=== PATIENT | male | born 1945 | race Caucasian/White ===

== ENCOUNTER 2016-05-14 07:13 | Observation (INO) | payer OTHER ==
[2016-05-14] MEDS ORDERED: MIDAZOLAM 2 MG/2 ML VIAL IVP ONE (07:17)
[2016-05-14] MEDS ORDERED: NS 1,000 ML IV ONE (07:17)
--- NOTE | 2016-05-14 07:37 | CPEKG ---
Heart Rate: 86 RR Interval: 698 P-R Interval: 148 QRSD Interval: 80 QT Interval: 352 QTC Interval: 421 P [place]: -5 QRS [place]: 51 T Wave [place]: 31 EKG Severity - NORMAL ECG - EKG Impression: SINUS RHYTHM Electronically Signed By: Prudencio Vidal 14-May-2016 07:52:36
[2016-05-14] MEDS ORDERED: ISOPROTERENOL HCL 0.2 MG/ML 5ML AMP ONE (07:57)
[2016-05-14] MEDS ORDERED: HEPARIN 10,000 UNIT/10 ML MDV ONE (07:57)
[2016-05-14] MEDS ORDERED: LIDOCAINE 1% 30 ML SDV ONE (07:57)
[2016-05-14] MEDS ORDERED: BUPIVACAINE 0.5% 30 ML SDV ONE (07:58)
[2016-05-14 08:02] LABS: ADD DIFF? NO; ADD MORPH? NO; ADD SCAN? NO; ATYPICAL LYMPHOCYTE FLAG 10 (0-99); FRAGMENT RBC FLAG 0 (0-99); HEMATOCRIT 46.5 % (40.0-51.0); HEMOGLOBIN 16.1 g/dL (13.7-17.5); LEFT SHIFT FLG 0 (0-99); LIPEMIA HEMOLYSIS FLAG 90 (0-99); MEAN CELL HEMOGLOBIN 30.4 pg (27.9-34.1); MEAN CELL HEMOGLOBIN CONCENTR. 34.6 g/dL (32.4-36.7); MEAN CELL VOLUME 87.9 fL (81.5-99.8); PLATELET CLUMPS FLAG 0 (0-99); PLATELET COUNT 193 10^3/uL (150-400); RED BLOOD CELL COUNT 5.29 10^6/uL (4.40-6.38); RED CELL DISTRIBUTION WIDTH 12.5 % (11.5-15.2)
[2016-05-14 08:13] LABS: INR 0.93 (0.83-1.16); PROTIME(PATIENT) 12.4 SEC (12.0-15.0)
[2016-05-14 08:14] LABS: APTT 27.4 SEC (23.0-38.0)
[2016-05-14 08:27] LABS: ANION GAP 10 mEq/L (8-16); CALCIUM 9.5 mg/dL (8.5-10.4); CARBON DIOXIDE 24 mEq/l (22-31); CHLORIDE 102 mEq/L (97-110); GLOMERULAR FILTRATION RATE > 60; GLUCOSE 100 mg/dL (70-100); POTASSIUM 4.4 mEq/L (3.5-5.2); SODIUM 136 mEq/L (134-144)
[2016-05-14] MEDS ORDERED: ROCURONIUM 100 MG/10 ML VIAL ONE (08:43)
[2016-05-14] MEDS ORDERED: PROPOFOL/EMULSION 500 MG/50 ML BOTTLE IV ONE (08:43)
[2016-05-14] MEDS ORDERED: DEXAMETHASONE 4 MG/ML VIAL ONE (08:43)
[2016-05-14] MEDS ORDERED: ONDANSETRON 4 MG/2 ML VIAL ONE (09:54)
[2016-05-14] MEDS ORDERED: PHENYLEPHRINE HCL 100 MCG/ML SYR ONE (10:03)
[2016-05-14] MEDS ORDERED: NEOSTIGMINE METHYLSULFATE 5 MG/5 ML SYR ONE (10:23)
[2016-05-14] MEDS ORDERED: GLYCOPYRROLATE 0.2 MG/1 ML VIAL ONE (10:23)
[2016-05-14] MEDS ORDERED: ACETAMINOPHEN 325 MG TAB PO PRN (10:36)
[2016-05-14] MEDS ORDERED: OXYCODONE/APAP 5/325 TAB PO PRN (10:36)
[2016-05-14] MEDS ORDERED: ONDANSETRON 4 MG/2 ML VIAL IVP PRN (10:36)
--- NOTE | 2016-05-14 10:41 | EPPROC ---
Electrophysiology Procedure Note: ELECTROPHYSIOLOGIC STUDY AND CATHETER MEDIATED ABLATION FOR SUBEUSTACHIAN ISTHMUS DEPENDENT COUNTERCLOCKWISE ATRIAL FLUTTER: INDICATION: Recurrent atrial flutter Prior ablation at our institution for atrial flutter PROCEDURES PERFORMED: 59268-77 EP evaluation with RA/RV/LA pace/record, with arrhythmia induction 94798-58 EP evaluation with RA/RV pace record, insert/reposition catheter, with arrhythmia induction 24299 SVT ablation 08835 3D mapping Fluoroscopy Catheters & Anesthesia: The patient arrived in the Electrophysiology Laboratory in the fasting state. The right clavicular region, right groin, and left groin area were prepped and draped in the usual sterile manner. Anesthesiologist Dr. Glenda Soriano administered general anesthesia. Appropriate non-invasive blood pressure, pulse oximetry and end-tidal CO2 monitoring was established. All catheters were placed percutaneously using the modified Seldinger technique , and advanced into position under fluoroscopic guidance. One #7 [place] deflectable octapolar electrode catheter was advanced to the His-bundle position via the left femoral vein . One #7 [place] deflectable catheter with 10 pairs of electrodes was placed via the left femoral vein into the coronary sinus. One # 7 [place] Halo catheter was inserted through the right femoral vein and was placed at the tricuspid annulus. Heparin was administered to keep ACT > 200 seconds. Programmed stimulation was performed from the right atrium, coronary sinus ( left atrium) and right ventricle. Parahisian pacing demonstrated all retrograde conduction over the AV node. On arrival to the Electrophysiology Laboratory the patient was in sinus rhythm. Conduction was seen along the CT isthmus. Atrial flutter has been seen clinically. In preparation for ablation of typical atrial flutter, a high-resolution 3D (3 dimensional) Carto electroanatomical map of the sub-Eustachian isthmus and right atrium was obtained during pacing of the posterolateral coronary sinus. For ablation of typical atrial flutter, one Agilis sheath was placed in the right atrium. A #8 [place] deflectable quadrapolar electrode catheter (2mm-5mm- 2mm spacing) with 3.5 mm irrigated tip electrode and location sensor for the Jdguanjia mapping system was inserted in the long sheath and advanced to the right atrium. Radiofrequency applications were applied between the tricuspid annulus at 0630 oclock as seen in the MALTESE view and the inferior vena cava. First RF application near the tricuspid annulus achieved conduction block across the isthmus. Time to block 30 s. Total RF time 677 s. Following ablation of the atrial flutter, programmed atrial stimulation was performed in the baseline state and during infusion of isoproterenol 2 mcg/min. No atrial arrhythmias were inducible post ablation. Post ablation, a high-resolution electroanatomical map of the sub-Eustachian isthmus was obtained during pacing of the posterolateral coronary sinus. This confirmed conduction block across the sub-Eustachian isthmus. Bidirectional block was also confirmed by pacing. Septal to lateral conduction time 130 s. The catheters were removed. Long sheath was changed to short 9Fr sheath. Protamine was administered. The patient was transferred to the cardiovascular holding area in stable condition. Vascular access sheaths were removed in the holding area. There were no apparent complications. CONCLUSIONS: 1. Atrial flutter. 2. Successful catheter mediated re-ablation of cavotricuspid isthmus achieving bi-directional conduction block across cavotricuspid isthmus. 3. No atrial arrhythmias inducible post ablation. 4. No apparent complications. Patient Problems: Problems Problem Status Onset Atrial flutter Acute
[2016-05-14] MEDS ORDERED: ATROPINE SULFATE 1 MG/10 ML SYR ONE (10:52)
[2016-05-14 11:54] LABS: ANION GAP 8 mEq/L (8-16); CALCIUM 8.9 mg/dL (8.5-10.4); CARBON DIOXIDE 27 mEq/l (22-31); CHLORIDE 103 mEq/L (97-110); CREATININE 1.1 mg/dL (0.7-1.3); GLOMERULAR FILTRATION RATE > 60; GLUCOSE 101 mg/dL (70-100); POTASSIUM 4.9 mEq/L (3.5-5.2); SODIUM 138 mEq/L (134-144)
--- NOTE | 2016-05-14 12:17 | CPEKG ---
Heart Rate: 71 RR Interval: 845 P-R Interval: 156 QRSD Interval: 88 QT Interval: 400 QTC Interval: 435 P [place]: 1 QRS [place]: 46 T Wave [place]: 52 EKG Severity - BORDERLINE ECG - EKG Impression: SINUS RHYTHM EKG Impression: BORDERLINE INFERIOR Q WAVES Electronically Signed By: Prudencio Vidal 14-May-2016 15:47:47
[2016-05-15 05:42] LABS: % IMMATURE GRANULYOCYTES 0.1 % (0.0-1.1); ABSOLUTE IMMATURE GRANULOCYTES 0.01 10^3/uL (0.00-0.10); ADD DIFF? NO; ADD MORPH? NO; ADD SCAN? NO; ATYPICAL LYMPHOCYTE FLAG 30 (0-99); FRAGMENT RBC FLAG 0 (0-99); HEMATOCRIT 43.5 % (40.0-51.0); HEMOGLOBIN 14.7 g/dL (13.7-17.5); LEFT SHIFT FLG 0 (0-99); LIPEMIA HEMOLYSIS FLAG 90 (0-99); MEAN CELL HEMOGLOBIN 30.2 pg (27.9-34.1); MEAN CELL HEMOGLOBIN CONCENTR. 33.8 g/dL (32.4-36.7); MEAN CELL VOLUME 89.3 fL (81.5-99.8); MEAN PLATELET VOLUME 9.1 fL (8.7-11.7); PLATELET CLUMPS FLAG 10 (0-99); PLATELET COUNT 178 10^3/uL (150-400); RED BLOOD CELL COUNT 4.87 10^6/uL (4.40-6.38); RED CELL DISTRIBUTION WIDTH 12.3 % (11.5-15.2)
[2016-05-15 05:52] LABS: INR 0.95 (0.83-1.16); PROTIME(PATIENT) 12.6 SEC (12.0-15.0)
[2016-05-15 05:57] LABS: ANION GAP 8 mEq/L (8-16); CALCIUM 9.2 mg/dL (8.5-10.4); CARBON DIOXIDE 27 mEq/l (22-31); CHLORIDE 102 mEq/L (97-110); GLOMERULAR FILTRATION RATE > 60; GLUCOSE 98 mg/dL (70-100); POTASSIUM 4.5 mEq/L (3.5-5.2); SODIUM 137 mEq/L (134-144)
[2016-05-15 06:05] LABS: CREATINE KINASE-MB FRACTION 1.58 ng/mL (0-3.19); TROPONIN I 0.191 ng/mL (0-0.034)
[2016-05-15 08:16] VITALS: BP 120/74; PULSE 85; RESP 18; TEMP 98.6; O2SAT 93
--- NOTE | 2016-05-15 08:34 | CPEKG ---
Heart Rate: 83 RR Interval: 723 P-R Interval: 148 QRSD Interval: 86 QT Interval: 344 QTC Interval: 405 P [place]: 9 QRS [place]: 34 T Wave [place]: 64 EKG Severity - BORDERLINE ECG - EKG Impression: SINUS RHYTHM EKG Impression: BORDERLINE T ABNORMALITIES, ANT-LAT LEADS Electronically Signed By: Prudencio Vidal 15-May-2016 09:21:19
[2016-05-15] MEDS ORDERED: ASPIRIN 81 MG CHEWABLE TAB PO SCH (09:00)
--- NOTE | 2016-05-15 10:52 | ECHO ---
[id number] + + [address] : : [place] [address] : : [phone] + + Adult Echocardiographic Report + -------+ :Name: NUNU KIRAN MStudy Date: 05/15/2016 07:18 AM : : Hospital Admission Number: [id number] Locati on: 223: :: 1945 Gender: Male Height: 69 in : :Age: 71 yrs Race: WH Weight: 165 lb : :Reason For Study: Aflutter/Post EP study : : BSA: 1.9 meter s2 : + -------+ MMode/2D Measurements \T\ Calculations IVSd: 0.86 cm LVIDd: 4.4 cm FS: 37.9 % Ao root diam: LVPWd: 0.72 cm LVIDs: 2.7 cm EDV(Teich): 4.1 cm 85.8 ml LA dimension: ESV(Teich): 3.7 cm 27.2 ml EF(Teich): 68.3 % LVLd ap4: 8.4 cm SV(MOD-sp4): EDV(MOD-sp4): 42.0 ml 63.0 ml LVLs ap4: 7.0 cm ESV(MOD-sp4): 21.0 ml EF(MOD-sp4): 66.7 % Normal Measurement Values: + + :LVIDd (3.5-5.7cm) IVSd (0.6-1.1cm) LVPWd (0.6-1.1cm) Aortic Root (2.0-3.7cm)Left Atrium (1.5-4.0cm): :LV Vol(d) (76-115ml) LV Vol(s) (29-48ml) Ejec Fraction (50-65%)PV Chaim (0.6- 1.2m/s) TV [place] (0.4-1.0m/s) : :MV E [place] (0.8-1.0m/s)MV A [place] (0.3-1.0m/s)LVOT [place] (0.7-1.2m/s) Asc Ao Chaim ( 0.9-1.8m/s) : + + Doppler Measurements \T\ Calculations MV E max chaim: 56.1 cm/secAo mean P.9 mmHg AI max chaim: 478.9 cm/sec MV A max chaim: 63.9 cm/secAo V2 mean: 78.9 cm/sec AI max P.9 mmHg MV E/A: 0.88 Ao V2 VTI: 21.1 cm AI dec slope: 202.7 cm/sec2 AI P1/2t: 692.1 msec Left Ventricle The left ventricle is normal in size and function. There is normal left ventricular wall thickness. Left ventricular systolic function is normal. Ejection Fraction = 60-65%. E/a wave reversal. No regional wall motion abnormalities noted. Right Ventricle The right ventricle is normal in size and function. Atria The left atrial size is normal. Right atrial size is normal. The interatrial septum is intact with no evidence for an atrial septal defect. Mitral Valve Calcified mitral apparatus. There is no evidence of mitral valve prolapse. There is no mitral valve stenosis. There is trace mitral regurgitation. Tricuspid Valve Normal tricuspid valve. There is trace tricuspid regurgitation. Aortic Valve The aortic valve is trileaflet. The aortic valve opens well. There is no aortic stenosis. Mild to moderate aortic regurgitation. Pulmonic Valve The pulmonic valve is normal in structure and function. Trace pulmonic valvular regurgitation. Great Vessels Borderline aortic root dilatation. Mildly dilated ascending aorta. Pericardium/Pleural There is no pericardial effusion. There is a fat pad seen. Conclusion A complete two-dimensional transthoracic echocardiogram was performed (2D, M-mode, Doppler and color flow Doppler). The left ventricle is normal in size and function. Left ventricular systolic function is normal. Ejection Fraction = 60-65%. E/a wave reversal. Calcified mitral apparatus. There is trace mitral regurgitation. There is trace tricuspid regurgitation. Mild to moderate aortic regurgitation. Trace pulmonic valvular regurgitation. Borderline aortic root dilatation. Mildly dilated ascending aorta. There is no pericardial effusion. There is a fat pad seen. Final Reading Physician: Doreen Mattaronicroldan signed on 05/15/2016 10:50 AM Ordering Physician: Emmanuel Lucas Performed By: Naz Boykin, SIDRACS
--- NOTE | 2016-05-15 14:42 | GDS ---
DISCHARGE DIAGNOSES: 1. Paroxysmal atrial fibrillation. 2. Paroxysmal atrial flutter, status post previous ablation in February 2016 and repeat ablation in this admission. 3. History of prostate cancer. PROCEDURES: 1. 2016, EP procedure with successful catheter-mediated re-ablation of a cavotricuspid isthm us achieving bidirectional conduction block across the cavotricuspid isthmus. 2. 05/15/2016, echocardiogram which shows ejection fraction is 60-65, calcified mitral apparatus, t race MR, trace TR, [id number] AR, trace pulmonic valve regurgitation. Borderline aortic root dilatation and mildly dilated ascending aorta. BRIEF HISTORY: Please see dictated H and P for complete details. In brief, the patient is a 71-yea r-old male with a history of atrial fibrillation and atrial flutter. He had a flutter ablation in 2 016 but then started to note recurrent palpitations. He had a monitor placed which showed heart rat e of 228 beats per minute consistent with atrial flutter at a one-to-one conduction to the ventricle s. He has also had others showing atrial fibrillation. Given that most of his arrhythmia is atrial flutter, he proceeded to an atrial flutter re-ablation on 05/14/2016. On day of discharge, patient denies any chest pain, shortness of breath, or groin pain. PHYSICAL EXAMINATION: VITAL SIGNS: On day of discharge, blood pressure 120/74, heart rate of 85, r espirations 18, O2 saturation 93% on room air. Temp of 98.6 degrees Fahrenheit. GENERAL: He is a very pleasant male in no apparent distress. HEENT: Eyes are SARMAD with no scleral icterus. HEART: Regular rate and rhythm with no rubs, gallops, or murmurs. LUNGS: Clear to auscultation. ABDOMEN : Bilateral groin sites without significant erythema, ecchymosis, or bruit. Groin Tegaderm were re moved bilaterally. EXTREMITIES: There are 2+ PT and DP pulses bilaterally. LABORATORY DATA: CBC with WBC 7.32, hemoglobin 14.7, hematocrit 43.5, platelet count of 178. BMP w ith sodium 137, potassium 4.5, chloride 102, CO2 of 27, BUN 14, creatinine 1, glucose 98. Troponin is 0.19. A 12-lead ECG on day of discharge shows sinus rhythm. Telemetry review shows sinus rhythm . RESULTS PENDING: None. DIET: Per previous. ACTIVITY: Groin precautions were reviewed. DISCHARGE MEDICATIONS: Please see med reconciliation for complete details. He is being discharged on his home multivitamin, glucosamine, and aspirin. He may take Tylenol as needed for groin discomf ort. FOLLOWUP INSTRUCTIONS: 1. Groin precautions reviewed. 2. Follow up with Dr. Lucas as scheduled for 1 month's time. /[id number]/MODL
== END 2016-05-15 10:56 | disposition home or self-care (01) ==
LOC: FCATH 07:13 → F2W 10:36
PROVIDERS: ADMIT Internal Medicine Cardiovascular Disease; ATTEND Internal Medicine Cardiovascular Disease
DX: I48.0 Paroxysmal atrial fibrillation (principal); I48.92 Unspecified atrial flutter; Z85.46 Personal history of malignant neoplasm of prostate; Z79.82 Long term (current) use of aspirin
CPT/HCPCS: 93005; 93306; 93613; 93621; 93623; 93653; C1731; C1732; C1766; G0378; J0461; J1100; J1644; J2370; J2405; J2704; J2710

== ENCOUNTER 2016-08-06 06:04 | Observation (INO) | payer OTHER ==
[~2016-08-06 06:04] MED LIST: ceFAZolin 2 GM/DEXTROSE 100 ML IV ONE
[2016-08-06] MEDS ORDERED: LIDOCAINE 1% 2 ML INJ ONE (06:11)
[2016-08-06] MEDS ORDERED: LIDOCAINE 1% 5 ML SDV ID PRN (06:50)
[2016-08-06] MEDS ORDERED: LR 1,000 ML IV ONE (06:50)
[2016-08-06] MEDS ORDERED: BUPIVACAINE 0.5% 30 ML SDV ONE (07:13)
[2016-08-06] MEDS ORDERED: PROPOFOL 200 MG/20 ML VIAL ONE ×2 (07:45)
[2016-08-06] MEDS ORDERED: fentaNYL 100 MCG/2 ML INJ ONE ×2 (07:45→08:32)
[2016-08-06] MEDS ORDERED: LIDOCAINE 2% 100 MG/5 ML SYR ONE ×2 (07:50→07:51)
[2016-08-06] MEDS ORDERED: ROCURONIUM 50 MG/5 ML VIAL ONE (07:50)
[2016-08-06] MEDS ORDERED: MIDAZOLAM 2 MG/2 ML VIAL ONE (07:53)
[2016-08-06] MEDS ORDERED: SUGAMMADEX SODIUM 200 MG/2 ML VIAL IVP ONE (08:30)
[2016-08-06] MEDS ORDERED: KETOROLAC 30 MG/1 ML SDV ONE (08:30)
[2016-08-06] MEDS ORDERED: IBUPROFEN 600 MG TAB PO PRN (09:08)
[2016-08-06] MEDS ORDERED: ONDANSETRON 4 MG/2 ML VIAL IVP PRN (09:08)
--- NOTE | 2016-08-06 09:10 | POSTOPPROG ---
Post Op Note Date of Operation: 08/06/16 Surgeon: Yao Collier Kiln Transfer Operator: Natalia Shipley Anesthesiologist: Mj Jesus Anesthesia: GET(General Endotracheal) Pre-op Diagnosis: LIH, umbilical hernia Post-op Diagnosis: same Procedure: open LIH repair c mesh, open umbilical hernia repair s mesh Findings: 1.5 cm umb defect Inf/Abcess present in the surg proc area at time of surgery?: No EBL: Minimal Complications: none
[2016-08-06] MEDS: DOCUSATE SODIUM 100 MG CAP PO SCH (20:30)
[2016-08-07] MEDS: OXYCODONE/APAP 5/325 TAB PO PRN ×3 (02:36→12:16)
--- NOTE | 2016-08-07 04:24 | GOP ---
[f rep st] OPERATIVE REPORT DATE OF OPERATION: 08/06/2016 SURGEON: Yao Collier MD HAND MOLDER MEAT: KRISTEN Salas ANESTHESIOLOGIST: Dr. Jesus. PREOPERATIVE DIAGNOSIS: Left inguinal hernia and umbilical hernia. POSTOPERATIVE DIAGNOSIS: Left inguinal hernia and umbilical hernia. PROCEDURE PERFORMED: Open left inguinal hernia repair and open umbilical hernia repair. FINDINGS: The patient was found to have an indirect left inguinal hernia. It was a moderate indire ct sac. Had a small 1.5 cm umbilical defect. DESCRIPTION OF PROCEDURE: The patient was taken to the operating room, where he received a satisfac tory general endotracheal anesthesia by Dr. Jesus. He was placed in supine position, prepped and dr aped in usual sterile fashion. Left inguinal incision was made and carried through the subcutaneous tissue. Hemostasis was obtained with electrocautery and 3-0 Vicryl ties. The external oblique was opened to the external ring. The ilioinguinal nerve was identified and preserved. The cord was mo bilized from the floor of the canal. The cremasteric fibers were incised and indirect sac was disse cted free from the cord structures along with a small lipoma. The lipoma was ligated at the interna l ring with a 3-0 Vicryl tie and amputated. The indirect sac was opened, its contents were reduced. It was doubly suture ligated at the internal ring with 2 Vicryl sutures. Excess sac was amputated . The stump was infiltrated with 0.5% Marcaine. The wound was infiltrated with 0.5% Marcaine. A C ovidien polyester ProGrip patch was placed over the inguinal floor. A split patch was used to pass the limb around the cord structures. It was anchored in place with 0 Surgilon sutures, securing it to the lacunar ligament, the internal oblique fascia and the shelving edge of the inguinal ligament. Hemostasis was assured. The wound was further infiltrated with 0.5% Marcaine. Cord and nerve wer e replaced in their anatomic positions. External oblique was closed with a running 2-0 Vicryl sutur e, subcu with 3-0 Vicryl, and the skin with a 4-0 Monocryl subcuticular stitch. All layers infiltra rod with 0.5% Marcaine. Attention was turned to the umbilical defect. A curvilinear incision was made. Dissection carried down through the subcutaneous tissue. The umbilical hernia sac was dissected free from surrounding subcutaneous tissue and off the back of the umbilical skin. The sac was opened at the fascial ring, its contents were reduced. Excess sac was excised and the defect was closed with a [id number] type 2-layer closure with 0 Surgilon mattress sutures. The wound was infiltrated with 0.5% Marcain e. Subcu was closed with 3 Vicryl. The skin with a 4-0 Monocryl subcuticular stitch. He tolerated procedure well, taken to recovery room in good condition. No complications. Blood loss negligible . /[id number]/MODL
[2016-08-07 08:10] VITALS: BP 116/74; PULSE 66; RESP 16; TEMP 97.9; O2SAT 95
[2016-08-07] MEDS: DOCUSATE SODIUM 100 MG CAP PO SCH (08:59)
[2016-08-08] MEDS ORDERED: ENOXAPARIN 40 MG/0.4 ML SYR SC SCH (09:00)
== END 2016-08-07 12:26 | disposition home or self-care (01) ==
LOC: FSGY 06:04 → F3E 09:07
PROVIDERS: ADMIT Surgery; ATTEND Surgery
DX: K40.90 Unilateral inguinal hernia, without obstruction or gangrene, not specified as recurrent (principal); K42.9 Umbilical hernia without obstruction or gangrene; Z86.79 Personal history of other diseases of the circulatory system; Z85.46 Personal history of malignant neoplasm of prostate
CPT/HCPCS: 49505; 49585; C1781; G0378; J0690; J1885; J2001; J2250; J2704; J3010